=== PATIENT | male | born 1995 | race Two or more races ===

== ENCOUNTER 2020-05-19 21:29 | Inpatient (IN) | payer BC ==
[~2020-05-19] VITALS: Ht 172.7 cm; Wt 105.4 kg
[2020-05-19 22:31] LABS: Basophils # (auto) 0.1 10 ^3/uL (0-0.2); Basophils % (auto) 0.3 % (0.0-2.0); Eosinophils # (auto) 0 10 ^3/uL (0-0.8); Eosinophils % (auto) 0.1 % (0.0-7.0); Hematocrit 50.9 % (41.0-53.0); Lymphocytes # (auto) 1.1 10 ^3/uL (0.4-5.4); Mean Corpuscular Hemoglobin 28.7 pg (28.0-32.0); Mean Corpuscular Hgb Conc. 33.4 g/dL (32.0-36.0); Monocytes # (auto) 0.7 10 ^3/uL (0-1.3); Monocytes % (auto) 4.2 % (0.0-12.0); Neutrophils # (auto) 15.8 10 ^3/uL (1.6-8.6); Neutrophils % (auto) 89.4 % (37.0-80.0); Nucleated Red Blood Cells % 0.5 %; Platelet Count (auto) 292 10^3/uL (140-450); Red Blood Cells 5.92 10^6/uL (4.5-5.90); Red Cell Distribution Width 13.6 % (11.8-14.3); White Blood Cell 17.7 10^3/uL (4.4-10.8)
[2020-05-19 22:43] LABS: Urine Amorphous Crystal FEW /hpf (None Seen); Urine Bacteria FEW /hpf (None Seen); Urine Blood Negative /uL (Negative); Urine Mucus FEW (None Seen); Urine Specific Gravity 1.035 (1.001-1.035); Urine WBC 6 /hpf (0 - 3)
[2020-05-19 22:49] LABS: Albumin 4.2 g/dL (3.4-5.0); Calcium 9.4 mg/dL (8.5-10.1); Potassium 3.7 mmol/L (3.5-5.1)
[2020-05-19 22:52] LABS: BUN/Creatinine Ratio 10.4; Bilirubin, Total 0.9 mg/dL (0.2-1.0); Total Protein 8.6 g/dL (6.4-8.2)
[2020-05-19] MEDS ORDERED: metroNIDAZOLE 500MG/100ML 100 ML IV ONE (23:00)
[2020-05-19] MEDS ORDERED: ONDANSETRON HCL 4 MG/2 ML VIAL IV ONE (23:00)
[2020-05-19] MEDS ORDERED: MORPHINE SULFATE 4 MG/ML SYR/VIAL IV ONE (23:00)
[2020-05-19] MEDS ORDERED: cefTRIAXone 1GM/50ML D5W 50 ML IV ONE (23:00)
[2020-05-19] MEDS ORDERED: SODIUM CHLORIDE 0.9% 1,000 ML IV ONE (23:00)
[2020-05-20] MEDS ORDERED: SODIUM CHLORIDE 0.9% 1,000 ML IV SCH (00:30)
[2020-05-20] MEDS ORDERED: ONDANSETRON HCL 4 MG/2 ML VIAL IV PRN ×2 (00:30→12:15)
[2020-05-20] MEDS ORDERED: PANTOPRAZOLE 40 MG/10 ML VIAL INJ IV ONE (00:45)
[2020-05-20] MEDS ORDERED: HYDROmorphone HCL 2 MG/ML VL IV ONE (00:45)
[2020-05-20 01:05] LABS: INR 1.03 (0.9-1.15); Partial Thromboplastin Time 26.2 sec (23.0-31.2)
[2020-05-20 02:20] VITALS: BP 156/94
--- NOTE | 2020-05-20 02:20 | NUR ---
MS admit from ER COCO,EDWARD admitted to tele/MS after SBAR received. Patient oriented to Jessie Salas, primary RN, unit, room, bed, and unit policies regarding patient care and visiting hours. Patient weighed by bed scale and encouraged to call if they need something. All questions and concerns addressed, patient verbalized understanding.
[2020-05-20] MEDS: MORPHINE SULFATE 4 MG/ML SYR/VIAL IV PRN ×3 (05:06→21:07)
[2020-05-20 05:14] VITALS: BP 156/94
[2020-05-20] MEDS: metroNIDAZOLE 500MG/100ML 100 ML IV SCH ×3 (05:44→22:29)
--- NOTE | 2020-05-20 07:11 | NUR ---
CLOSING NOTE- NOC SHIFT PATIENT IS ALERT AND ORIENTED X4. NO S/SX OF DISTRESS OR SOB. PATIENT REPORTS UNRELIEVED PAIN OF 7/10 TO LOWER ABDOMEN. WILL ENDORSE CARE TO DAY SHIFT RN.
[2020-05-20 08:00] VITALS: BP 155/94
[2020-05-20] MEDS: cefTRIAXone 1GM/50ML D5W 50 ML IV SCH (09:10)
[2020-05-20] MEDS: PANTOPRAZOLE 40 MG/10 ML VIAL INJ IV SCH (09:48)
--- NOTE | 2020-05-20 10:30 | NUR ---
PATIENT TO OR PER BED FOR SURGERY IN STABLE CONDITION.
[2020-05-20] MEDS ORDERED: POVIDONE IODINE 10 % TOPICAL OINT 30GM TOP ONE (10:43)
[2020-05-20] MEDS ORDERED: fentaNYL CITRATE 100 MCG/2 ML VL IV PRN (10:45)
[2020-05-20] MEDS ORDERED: MORPHINE SULFATE 4 MG/ML SYR/VIAL IV PRN (10:45)
[2020-05-20] MEDS ORDERED: KETOROLAC TROMETH 30 MG/ML 1ML VIAL IV ONE (10:45)
[2020-05-20] MEDS ORDERED: METOCLOPRAMIDE HCL 5MG/ml INJ 2ml VIAL IV PRN (10:45)
[2020-05-20] MEDS ORDERED: HYDROmorphone HCL 2 MG/ML VL IV PRN ×2 (10:45→12:15)
[2020-05-20] MEDS ORDERED: MEPERIDINE HCL (25 MG/ML) 1ML VIAL ONE (10:47)
[2020-05-20] MEDS ORDERED: METOCLOPRAMIDE HCL 5MG/ml INJ 2ml VIAL ONE (10:48)
[2020-05-20] MEDS ORDERED: MIDAZOLAM HCL 1MG/1ML-2 ML VIAL ONE (10:48)
[2020-05-20] MEDS ORDERED: SODIUM CHLORIDE LOCK 10 ML ONE (10:48)
[2020-05-20] MEDS ORDERED: PROPOFOL 10 MG/ML 20 ML IV ONE (10:48)
[2020-05-20] MEDS ORDERED: ONDANSETRON HCL 4 MG/2 ML VIAL ONE (10:48)
[2020-05-20] MEDS ORDERED: ROCURONIUM 10MG/ML 10ML VIAL IV ONE (10:48)
[2020-05-20] MEDS ORDERED: fentaNYL CITRATE 100 MCG/2 ML VL ONE (10:48)
[2020-05-20] MEDS ORDERED: SUCCINYLCHOLINE CHLORIDE 20 MG/ML 10ML VIAL IV ONE (10:54)
[2020-05-20] MEDS ORDERED: GLYCOPYRROLATE 0.2 MG/ML 1ML VIAL ONE (11:49)
[2020-05-20] MEDS ORDERED: NEOSTIGMINE 1 MG/ML INJ (10mg/10ML VIAL) ONE (11:49)
--- NOTE | 2020-05-20 13:00 | NUR ---
PATIENT RETURNED FROM PACU S/P LAPAROSCOPIC APPENDECTOMY. PATIENT SLEEPY BUT ABLE TO OPENED EYES AND CONVERSE WHEN SPOKEN TO. NO C/O PAIN VOICED BY PATIENT AT THIS TIME. REPORT RECEIVED BY PHONE FROM ADVISORY SERVICES ASSOCIATE. DRESSINGS TO PUNCTURE SITES WITH BETADINE STAIN AND INTACT. NO BLEEDING OR DRAINAGE NOTED IN THE SITES.REMINDED PATIENT TO ASK FOR ASSIST WHEN GETTING UP AT THIS TIME. WILL CONTINUE TO MONITOR PATIENT.
[2020-05-20] MEDS ORDERED: LABETALOL HCL 5 MG/ML 4ML SYRINGE IV PRN (14:45)
[2020-05-20] MEDS: SODIUM CHLORIDE 0.9% 1,000 ML IV SCH ×2 (14:52→20:53)
[2020-05-20 17:00] VITALS: BP 150/87
--- NOTE | 2020-05-20 19:20 | NUR ---
Received report from the Day Shift RN Girish. Initial assessment done.
[2020-05-20 20:00] VITALS: BP 149/92
--- NOTE | 2020-05-20 20:00 | NUR ---
Complete assessment done. Pt. alert, awake, oriented x 4 and cooperative to the nsg. staff. Encouraged pt. to ambulate.
--- NOTE | 2020-05-20 20:50 | NUR ---
Pt. able to ambulate to the BR and along the room back to his bed. Pt. voided well @ the BR.
--- NOTE | 2020-05-20 21:07 | NUR ---
Pt. given Morphine Sulfate 2 mg. IV for severe pain 8/10 scale @ surgical site @ the abdomen s/p Lap. Appendectomy, acute pain, stabbing and throbbing. IVF of NS @ 100 mls./hr. continuous.
[2020-05-20 22:00] VITALS: BP 145/92
--- NOTE | 2020-05-20 22:29 | NUR ---
Due meds. given @ 9 PM. Pt. able to understand health teaching about the benefits of the Flagyl 500 mg. given IV.
--- NOTE | 2020-05-21 02:30 | NUR ---
Pt. ambulates from bed to the BR and vice-versa. Pt. voided well @ the toilet light yellow grant.
[2020-05-21] MEDS: MORPHINE SULFATE 4 MG/ML SYR/VIAL IV PRN ×3 (02:56→21:36)
--- NOTE | 2020-05-21 02:56 | NUR ---
Pt. given Morphine Sulfate 2 mg. IV @ 0256 AM for severe pain of the surgical sites @ the abdomen s/p Lap Appendectomy about 7/10 scale, stabbing and throbbing as described by the pt. Encouraged pt. to rest and sleep. IVF of NS @ 100 ml./hr continuous @ the LAC G # 20. 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 Call-light within pt.'s reach.
--- NOTE | 2020-05-21 04:30 | NUR ---
Pt. resting and sleeping. No s/s of pain or discomfort @ this time.
[2020-05-21 05:00] VITALS: BP 145/87
[2020-05-21] MEDS: metroNIDAZOLE 500MG/100ML 100 ML IV SCH ×3 (06:05→21:33)
[2020-05-21] MEDS: SODIUM CHLORIDE 0.9% 1,000 ML IV SCH ×3 (06:05→23:15)
[2020-05-21 06:37] LABS: Basophils # (auto) 0 10 ^3/uL (0-0.2); Basophils % (auto) 0.3 % (0.0-2.0); Eosinophils # (auto) 0.1 10 ^3/uL (0-0.8); Eosinophils % (auto) 0.6 % (0.0-7.0); Hematocrit 44.4 % (41.0-53.0); Hemoglobin 15.2 g/dL (13.5-17.5); Lymphocytes # (auto) 2.4 10 ^3/uL (0.4-5.4); Lymphocytes % (auto) 20.6 % (10.0-50.0); Mean Corpuscular Hemoglobin 29.5 pg (28.0-32.0); Mean Corpuscular Hgb Conc. 34.4 g/dL (32.0-36.0); Mean Corpuscular Volume 85.8 fL (80.0-100.0); Monocytes # (auto) 0.8 10 ^3/uL (0-1.3); Monocytes % (auto) 7.2 % (0.0-12.0); Neutrophils # (auto) 8.3 10 ^3/uL (1.6-8.6); Neutrophils % (auto) 71.3 % (37.0-80.0); Nucleated Red Blood Cells % 0.1 %; Platelet Count (auto) 200 10^3/uL (140-450); Red Blood Cells 5.17 10^6/uL (4.5-5.90); Red Cell Distribution Width 13.6 % (11.8-14.3); White Blood Cell 11.6 10^3/uL (4.4-10.8)
[2020-05-21 07:02] LABS: Potassium 3.4 mmol/L (3.5-5.1)
[2020-05-21 07:09] LABS: Albumin 2.9 g/dL (3.4-5.0); BUN/Creatinine Ratio 7.9; Bilirubin, Total 0.9 mg/dL (0.2-1.0); Calcium 8.2 mg/dL (8.5-10.1)
[2020-05-21 08:00] VITALS: BP 123/72
[2020-05-21] MEDS: cefTRIAXone 1GM/50ML D5W 50 ML IV SCH (09:39)
[2020-05-21] MEDS: PANTOPRAZOLE 40 MG/10 ML VIAL INJ IV SCH (09:44)
[2020-05-21] MEDS: traMADol HCL 50 MG TAB PO PRN (09:44)
[2020-05-21] MEDS ORDERED: POTASSIUM CHL 20 Meq TABLET PO ONE (10:15)
[2020-05-21] MEDS ORDERED: HYDROmorphone HCL 2 MG/ML VL IV PRN (10:15)
[2020-05-21 12:00] VITALS: BP 134/86
[2020-05-21 16:59] VITALS: BP 124/83
--- NOTE | 2020-05-21 19:20 | NUR ---
Received report from the Day Shift RN Gunnar. Initial assessment done.
--- NOTE | 2020-05-21 20:00 | NUR ---
Complete assessment done. Pt. ambulates to the BR, encouraged to ambulate as needed to facilitate healing and circulation.
--- NOTE | 2020-05-21 21:33 | NUR ---
Flagyl 500 mg. IV given to the pt. Pt. made aware of the use/actions of the scheduled med.
--- NOTE | 2020-05-21 21:36 | NUR ---
Pt. given Morphine Sulfate 2 mg. IVP @ this time for pain of 710 @ the surgical sites of the abdomen s/p Lap. Appendectomy. Pt. described it as throbbing and stabbing in nature. Provided pt. psychological support and assisted with ADL's. 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 Maintained a quiet and restful environment.
--- NOTE | 2020-05-21 22:06 | NUR ---
Pt. pain reassessed, according to the pt. pain reduced or decreased from 7/10 to 2/10 s/p 30 mins. IV Morphine Sulfate given. Pt. is sleepy and desire to sleep @ this time. IVF of NS continuously running @ 75 ml./hr. @ the LAC G # 20. Keeping room environment free from noise and keep it dim-lighted to promote sleep and rest. Call-light within pt.'s reach.
[2020-05-21 22:17] VITALS: BP 134/76
--- NOTE | 2020-05-22 00:30 | NUR ---
Pt. calm and sleeping well. No s/s of pain or discomfort.
--- NOTE | 2020-05-22 04:00 | NUR ---
Pt. awakened from sleep, ambulates to the BR with min. assist.
[2020-05-22] MEDS: MORPHINE SULFATE 4 MG/ML SYR/VIAL IV PRN (04:36)
[2020-05-22 05:20] VITALS: BP 141/81
[2020-05-22] MEDS: metroNIDAZOLE 500MG/100ML 100 ML IV SCH (06:37)
--- NOTE | 2020-05-22 07:30 | NUR ---
Opening Shift Note Assumed care of patient, awake and alert. No S/S of distress/SOB. Pain reported to abdomen. Pain management options discussed with patient. Instructed on POC and to call for assist PRN, will continue to monitor for changes Q1hr and PRN.
[2020-05-22 07:32] LABS: Basophils # (auto) 0 10 ^3/uL (0-0.2); Basophils % (auto) 0.3 % (0.0-2.0); Eosinophils # (auto) 0.1 10 ^3/uL (0-0.8); Eosinophils % (auto) 1.2 % (0.0-7.0); Hematocrit 44.2 % (41.0-53.0); Lymphocytes # (auto) 2.5 10 ^3/uL (0.4-5.4); Lymphocytes % (auto) 28.5 % (10.0-50.0); Mean Corpuscular Hemoglobin 29.3 pg (28.0-32.0); Mean Corpuscular Hgb Conc. 33.9 g/dL (32.0-36.0); Mean Corpuscular Volume 86.5 fL (80.0-100.0); Monocytes # (auto) 0.6 10 ^3/uL (0-1.3); Monocytes % (auto) 6.6 % (0.0-12.0); Neutrophils # (auto) 5.7 10 ^3/uL (1.6-8.6); Neutrophils % (auto) 63.4 % (37.0-80.0); Nucleated Red Blood Cells % 0.1 %; Platelet Count (auto) 236 10^3/uL (140-450); Red Blood Cells 5.11 10^6/uL (4.5-5.90); Red Cell Distribution Width 13.8 % (11.8-14.3)
[2020-05-22 07:35] LABS: Potassium 3.5 mmol/L (3.5-5.1)
[2020-05-22 07:42] LABS: Albumin 2.9 g/dL (3.4-5.0); BUN/Creatinine Ratio 8.9; Bilirubin, Total 0.7 mg/dL (0.2-1.0); Calcium 8.4 mg/dL (8.5-10.1)
[2020-05-22] MEDS: traMADol HCL 50 MG TAB PO PRN (07:53)
[2020-05-22 08:00] VITALS: BP 141/68
[2020-05-22 09:00] VITALS: BP 141/68
[2020-05-22] MEDS: cefTRIAXone 1GM/50ML D5W 50 ML IV SCH (10:46)
[2020-05-22] MEDS: PANTOPRAZOLE 40 MG/10 ML VIAL INJ IV SCH (10:46)
--- NOTE | 2020-05-22 12:00 | NUR ---
Discharge instructions given as ordered. Encourage to follow up with PMD as instructed. All questions and concerns addressed. Patient verbalized understanding. Off work note faxed to patients's workplace per patient request. IV removed with catheter intact, pressure dressing applied. Patient ambulated to vehicle via wheelchair with all personal belongings. No distress noted at time of departure.
== END 2020-05-22 12:00 | disposition home or self-care (01) | DRG 853 ==
LOC: ER 21:29 → OVERFLOW 21:30 → CENTRAL 05-20 02:23
PROVIDERS: ADMIT Nurse Practitioner; ATTEND Internal Medicine
PROC: 0DTJ4ZZ Resection of Appendix, Percutaneous Endoscopic Approach (ICD-10-PCS; principal; 2020-05-20 11:04)
DX: A41.9 Sepsis, unspecified organism (principal); K72.00 Acute and subacute hepatic failure without coma; K35.80 Unspecified acute appendicitis; E66.9 Obesity, unspecified; F10.10 Alcohol abuse, uncomplicated; F17.210 Nicotine dependence, cigarettes, uncomplicated; I10 Essential (primary) hypertension; K76.0 Fatty (change of) liver, not elsewhere classified; Z79.899 Other long term (current) drug therapy; Z71.6 Tobacco abuse counseling; Z68.35 Body mass index [BMI] 35.0-35.9, adult
CPT/HCPCS: 36415; 74176; 76705; 80053; 81001; 83690; 85025; 85610; 85730; 86850; 86900; 86901; 87040; 88302; C9113; G0378; J0330; J0696; J2250; J2405; J2704; J3490